=== PATIENT | male | born 1940 | race Two or more races ===

== ENCOUNTER → 2020-09-03 09:11 | Outpatient (CLI) | payer OTHER | END | disposition home or self-care (01) | LOC: LAB 09:11 | PROVIDERS: ATTEND Internal Medicine Pulmonary Disease | DX: U07.1 COVID-19 (principal); R05 Cough; R06.02 Shortness of breath; R50.9 Fever, unspecified ==

== ENCOUNTER 2021-07-22 07:00 | Outpatient (CLI) | payer OTHER | END 2021-07-22 08:00 | disposition home or self-care (01) | LOC: PPH VACUNA 07:00 | PROVIDERS: ATTEND Emergency Medicine Pediatric Emergency Medicine | DX: Z23 Encounter for immunization (principal) ==